=== PATIENT | male | born 1975 | race African-American/Black ===

== ENCOUNTER 2019-10-31 10:25 | Emergency (ER) | payer OTHER ==
[~2019-10-31] VITALS: Ht 188 cm; Wt 117.9 kg
[~2019-10-31 10:25] MED LIST: FLAX SEED OIL1000 MG PO
[2019-10-31] MEDS ORDERED: HYDROCHLOROTHIA25 M2 PO ×3 (10:39→13:19)
[2019-10-31 10:42] LABS: ABSOLUTE EOSINOPHILS 0.2 thou/uL (0.0-0.7); ABSOLUTE LYMPHOCYTES 2.7 thou/uL (0.8-5.3); ABSOLUTE MONOCYTES 0.6 thou/uL (0.0-1.2); ABSOLUTE NEUTROPHILS 2.9 thou/uL (1.6-8.1); BASOPHILS 0.6 %; EOSINOPHILS 2.5 %; HEMATOCRIT 49.6 % (42.0-52.0); HEMOGLOBIN 17.1 gm/dL (14.0-18.0); LYMPHOCYTES 41.8 %; MCH 27.5 pg (26.0-34.0); MCHC 34.5 g/dL (28.0-37.0); MCV 79.8 fL (80.0-100.0); MONOCYTES 9.7 %; MPV 10.2 fl. (7.2-11.1); NUCLEATED RBCS 1 /100WBC; PLATELET COUNT* 232 thou/uL (150-400); POLYS 45.4 %; RBC 6.21 mil/uL (4.50-6.00); RDW-CV 13.7 % (10.5-14.5); WBC 6.3 thou/uL (4.0-11.0)
[2019-10-31 10:51] LABS: CALCIUM 8.7 mg/dL (8.5-10.1); CREATININE 1.4 mg/dL (0.6-1.3)
[2019-10-31 10:54] LABS: APTT 26.1 Seconds (25.0-31.3); PROTIME 10.2 Seconds (9.20-11.50)
[2019-10-31 10:56] LABS: POTASSIUM 2.8 mmol/L (3.5-5.1)
[2019-10-31 11:02] LABS: ALBUMIN 4.1 g/dL (3.4-5.0); MAGNESIUM 1.9 mg/dL (1.8-2.4); TOTAL BILIRUBIN 0.6 mg/dL (<0.1-1.0); TOTAL PROTEIN 8.3 g/dL (6.4-8.2)
[2019-10-31 11:09] LABS: URINE BILIRUBIN NEGATIVE (Negative); URINE BLOOD TRACE (Negative); URINE CLARITY CLEAR; URINE COLOR YELLOW; URINE GLUCOSE-RANDOM NEGATIVE (Negative); URINE KETONES NEGATIVE (Negative); URINE NITRITE-REFLEX NEGATIVE (Negative); URINE PROTEIN TRACE (Negative); URINE SPECIFIC GRAVITY <= 1.005 (1.005-1.030); URINE UROBILINOGEN 0.2 E.U./dl (0.2-1.0)
[2019-10-31 11:11] LABS: URINE LEUKOCYTES-REFLEX 2+ (Negative)
[2019-10-31 11:19] LABS: BACTERIA-REFLEX 1-9 Few /HPF (None Seen); CASTS None Seen /LPF (None Seen); CRYSTALS None Seen /LPF (None Seen); SQUAMOUS 0-3 Few /LPF (0-3); URINE RBC 0-2 Rare /HPF (0-2); URINE WBC-REFLEX 0-5 Rare /HPF (0-5)
[2019-10-31] MEDS ORDERED: CIPRO500 MG PO (13:14)
[2019-10-31] MEDS ORDERED: NABUMETONE 750750 M1 PO (13:14)
[2019-10-31] MEDS ORDERED: VENTOLIN HFA 1818 GM INH (13:14)
[2019-10-31 13:41] VITALS: BP 158/104
--- NOTE | 2019-10-31 15:11 | EKG ---
[place] [address] ELECTROCARDIOGRAM REPORT Name: LEANN DIAZ Room: [facility]#: [id number] Admission: 10/31/19 Attend Phys: Discharge: 10/31/19 Date of : 75 Report #: [id number] THIS REPORT FOR: //name// [facility] ED Test Date: 2019-10-31 Test Time: 10:36:49 Pat Name: LEANN DIAZ Department: Room: Gender: M Fish Straightener: LINDSAY : 1975 Requested By: Jade Jackson Order Number: [id number] MD: Varinder Luz Measurements Intervals [place] Rate: 89 P: 37 VA: 164 QRS: -1 QRSD: 111 T: QT: 355 QTc: 432 Interpretive Statements Sinus rhythm Probable left atrial enlargement Left ventricular hypertrophy Nonspecific T abnormalities, diffuse leads No previous ECG available for comparison Electronically Signed On 10-31-2019 15:10:36 [employer] by Varinder Luz [email or web address] <ELECTRONICALLY SIGNED> By: Varinder Luz MD, [facility] 10/31/19 1510 1036 1036 Varinder Luz MD, FACC /EPI
== END 2019-10-31 13:44 | disposition home or self-care (01) ==
LOC: M.ERS 10:25
PROVIDERS: Nurse Practitioner Family
DX: I10 Essential (primary) hypertension (principal); N39.0 Urinary tract infection, site not specified; R07.89 Other chest pain; E78.5 Hyperlipidemia, unspecified; Z88.0 Allergy status to penicillin